=== PATIENT | female | born 1995 | race Hispanic/Latino ===

== ENCOUNTER 2017-08-07 02:50 | Inpatient (IN) | payer OTHER ==
[2017-08-07 03:20] VITALS: BMI 24.3
--- NOTE | 2017-08-07 03:28 | PDOC.LDHP ---
Labor and Delivery H&P HPI: Patient of Dr courtney at [facility], here for irregular contractions. NO LOF, No VB, no Has, no recent trauama. EDC is 09/19/17. Patient is a 22 yo X 1 16 mos ago (born at 38 weeks) Sab2, at 33 weeks 6 days. Review of Systems: complete ROS performed and as per HPI. HX recent intercourse Current gestational age (weeks): 33 (6 days) Dating criteria: last menstrual period Grav: 4 Para: 1 (Last 16 mos ago, term delivery) Current complications: none Abnormal US findings: No Current medications: pre-norman vitamins Previous surgical history: other (HX Breast aumentation 2013) Allergies/Adverse Reactions: Allergies Allergy/AdvReac Type Severity Reaction Status Date / Time No Known Allergies Allergy Verified 08/07/17 03:13 Social history: none - Physical Exam Vital signs reviewed and normal: yes (BP 114/67, 70, 12, afebrile) General: NAD Heart: RRR Lungs: CTAB Abdomen: gravid Extremeties: no edema FHT: category 1 [place] contractions every: Irregular - Vaginal Exam cm dilated: 3 Effacement: 75% Station: -1 - Assessment L&D Assessment: labor - Plan Plan: observation in L&D, GBS antibiotic prophylaxis, informed consent obtained , other (We will keep in L&D for at least 12 hours and obs. Celestone now and in 12 hours. IVF hydrate. Sono for EFW.)
[2017-08-07] MEDS ORDERED: Promethazine HCl 25 MG/ML VIAL IM/IV PRN (03:33)
[2017-08-07] MEDS ORDERED: Ibuprofen 800 MG TAB PO PRN (03:36)
[2017-08-07] MEDS ORDERED: HYDROcodone/Acetaminophen 5/325 mg Tablet PO PRN ×2 (03:36)
[2017-08-07] MEDS ORDERED: Lidocaine 1% (PF) 30 ML VIAL SC PRN (03:36)
[2017-08-07] MEDS ORDERED: LR / Pitocin 40 units/1000 ml 1,000 ML IV PRN (03:36)
[2017-08-07] MEDS ORDERED: Penicillin G Potassium 5 MILL.UNITS in Sodium Chloride 0.9% 100 ML IVPB SCH (03:45)
--- NOTE | 2017-08-07 03:47 | PDOC.EVN ---
Event Note - Event Note Event Note: Follow up: Patient states that her first , she actually presented with some contractions and arrested labor with resulting at term. I reviewed hydration and sedation with her for therapeutic rest but she declined medications for pain. I also discussed terbutaline SQ x1 as a uterine relaxer but she is unsure if she would like the medication. We will give her some additional printed information on it. [place] with uterine irritability at this time, cat 1 strip.
[2017-08-07] MEDS ORDERED: Betamet Acet/Betamet Na Ph 30 MG/5 ML VIAL ONE (03:56)
[2017-08-07] MEDS ORDERED: Terbutaline Sulfate 1 MG/ML VIAL SC SCH (04:00)
--- NOTE | 2017-08-07 04:12 | PDOC.EVN ---
Event Note - Event Note Event Note: @0415: Present for bedside sono: EFW approx 1900 grams, cephalic. Good FHTs.
[2017-08-07] MEDS: Lactated Ringer's 1,000 ML IV SCH ×2 (04:25→14:56)
[2017-08-07 05:09] LABS: Hemoglobin 11.9 g/dL (12.0-16.0); Mean Corpuscular HGB CONC 33.4 g/dL (32.0-36.0); Mean Corpuscular Volume 83.9 fl (81.0-99.0); Platelet Count 315 thou/uL (130-400); RBC Distribution Width 12.4 % (11.5-14.5); Red Blood Cell (RBC) Count 4.24 mill/uL (4.20-5.40); White Blood Cell (WBC) Count 11.2 thou/uL (4.8-10.8)
[2017-08-07 05:48] LABS: Syphilis Antibody Nonreactive (Nonreactive); Syphilis Antibody Index 0.04 S/CO (<1.00 Non-Reactive)
[2017-08-07 05:49] LABS: HBSAg Index 0.54 S/CO (0-0.99); HIV (1/2) Antibody/Antigen Non-Reactive (NonReactive); HIV 1/2 INDEX 0.07 S/CO (<1.00); Hep B Surf Ag Non-Reactive S/CO (NonReactive)
--- NOTE | 2017-08-07 07:17 | PDOC.LDPN ---
Labor & Delivery Progress Note - Objective Dilation: 4 Effacement: 75% Station: -1 FHT: category 1 [place] contractions every: irregular - Assessment (1) labor in third trimester Code(s): O60.03 - LABOR WITHOUT DELIVERY, THIRD TRIMESTER Current Visit: Yes Status: Acute Plan: continue plan of care, other ([employer] has seen her. Patient first desired to think about terbutaline, but did recieve it after talking with neonatology. CX 4-5cm at last check which was at 0630. I evaluated her this AM at bedside just now and plan again reviewed. Anticipate spontaneous progress of labor. Second celestone if not delivered, at 12 hours. PCN in use. )
[2017-08-07] MEDS ORDERED: NIFEdipine 10 MG CAP ONE (08:44)
[2017-08-07] MEDS: Penicillin G 2.5 MILL.units 2.5 MILL.UNITS in Premix Bag 1 BAG IVPB SCH ×2 (08:48→13:07)
[2017-08-07] MEDS ORDERED: Betamet Acet/Betamet Na Ph 30 MG/5 ML VIAL IM SCH (09:00)
[2017-08-07] MEDS ORDERED: NIFEdipine 10 MG CAP PO SCH (09:15)
--- NOTE | 2017-08-07 09:27 | ULT ---
PRELIMINARY REPORT/[facility]/EMERGENT[facility] AFTER-HOURS PROCEDURE US After First Trimester, Transabdominal CLINICAL HISTORY: 22 years old, female; Signs and symptoms; Lmp or gestational age (in weeks): 32-33wks; Other: ? Prete rm labor- eval size and position; TECHNIQUE: Real-time transabdominal obstetrical ultrasound of the maternal pelvis and a second or third trimeste r with image documentation. COMPARISON: No relevant prior studies available. FINDINGS: Fetus: Single live Heart rate: 140 beats per minute Presentation: Vertex Placenta: Unremarkable. No abruption. Amniotic fluid: Index measures 9.4 cm at the lower range of normal Anatomy: Visualized anatomy is normal. BIOMETRICS Gestational age: 32 weeks and 3 days DIANA: 09/29/2017 EFW: 1960 g MATERNAL: Free fluid: No free fluid. IMPRESSION: Single live intrauterine as described Estimated weight of 1960 g Vertex position Amniotic fluid index at the lower range of normal Thank you for allowing us to participate in the care of your patient. Dictated and Authenticated by: Ananth Zambrano MD 08/07/2017 5:38 AM Central Time ([place] & [place]) FINAL REPORT OBSTETRICAL ULTRASOUND: INDICATION: History of labor. COMPARISON: None. FINDINGS: There is a single live intrauterine gestation in vertex presentation. The placenta is anterior in lo cation without evidence of previa. Cardiac activity is noted at 147 b.p.m. HOLLY is measures a 9.4 cm . The estimated weight based on biometrics is 4 pounds 5 ounces +/- 10 ounces (1960 gm + /- 290 gm) (10th percentile). The estimated gestational age based on biometrics is 32 weeks 3 days with estimated due date . Visualized aspects of the anatomy at this advanced gestational age appeared within normal limi ts. IMPRESSION: Agree with the preliminary report provided. There is a single live intrauterine gestation with size and dates as above. The amniotic fluid index is lower limits of normal at 9.4 cm. POS: [facility]
[2017-08-07] MEDS ORDERED: Sodium Chloride 0.9% 1,000 ML IV SCH (11:00)
[2017-08-07] MEDS: NIFEdipine 10 MG CAP PO SCH ×3 (13:08→20:47)
[2017-08-08] MEDS: Lactated Ringer's 1,000 ML IV SCH ×4 (01:02→14:40)
[2017-08-08] MEDS: NIFEdipine 10 MG CAP PO SCH ×5 (03:01→22:19)
[2017-08-08] MEDS ORDERED: Betamet Acet/Betamet Na Ph 30 MG/5 ML VIAL IM SCH (03:45)
--- NOTE | 2017-08-08 08:45 | PDOC.EVN ---
Event Note - Event Note Event Note: 08/09/15 @0841: L&D Bed Check: Patient seen st bedside. Plan reviewed. She is eating breakfast and doing well. Occassional contractions. S. VSS afebrile. No VB, no ROM O. On oral procardia Cat 1 strip (i use now) A/P: Assessment and plan: arrested PTL at 34 weeks, s/p celestone...on oral nifedipine. Procardia ordered to stop at 0400 on 08/09/17 (approximate time), then recommend 24 hours observation of meds.
--- NOTE | 2017-08-08 09:09 | PRG ---
DATE OF SERVICE: 08/08/2017 HISTORY OF PRESENT ILLNESS: Ms. Gt Payne is a 22-year-old female, hospital day 2, admitted f or labor, patient was arrested at 4 cm, 80% effaced and -2 station, on Procardia yesterday mo rning. She has done very well in the last 24 hours and has been resting without complaint. She repo rts today that she begins to feel contractions again, as the medicine is wearing off. She has no oth er complaints. Denies leaking fluid or bleeding. She is tolerating a diet. She denies headaches. OBJECTIVE: VITAL SIGNS: Blood pressure 103/56, heart rate of 86, respiratory rate 16, temperature 98.2. GENERAL: She appears to be in no acute distress. She is alert, oriented, cooperative, and pleasant to interact with. HEAD: Normocephalic, atraumatic. ABDOMEN: Soft, nontender to palpation. EXTREMITIES: Nontender, nonedematous. CERVICAL EXAM: Has been deferred at this time. heart tracing last night demonstrated a fetus with a baseline in the 130s with moderate long-term variability, positive accelerations, no decelerat ions, and no contractions. ASSESSMENT AND PLAN: The patient is a 22-year-old female with an intrauterine at 34 weeks with arrest at 4 cm. She is status post 2 doses of betamethasone. Her 48-hour window will be closed tomorrow at 3 in the morning, at which time the Procardia will be discontinued. Given the patient's stable status, the patient is going to be transferred to the floor for the remainder of her stay unl ess she begins to show signs of labor once again.
[2017-08-08] MEDS ORDERED: Penicillin G Potassium 5 MILL.UNITS VIAL ONE (14:58)
[2017-08-08] MEDS ORDERED: Ondansetron HCl/PF 4 MG/2 ML Vial IVP PRN (14:59)
[2017-08-08] MEDS ORDERED: Promethazine HCl 25 MG/ML VIAL IM PRN (14:59)
[2017-08-08] MEDS ORDERED: Sodium Chloride 0.9% 100 ML ONE (14:59)
[2017-08-08] MEDS ORDERED: LR / Pitocin 40 units/1000 ml 1,000 ML IV PRN (15:00)
[2017-08-08] MEDS ORDERED: Lidocaine 1% (PF) 30 ML VIAL SC PRN (15:00)
[2017-08-08] MEDS ORDERED: Penicillin G Potassium 5 MILL.UNITS in Sodium Chloride 0.9% 100 ML IVPB SCH (15:00)
[2017-08-08] MEDS ORDERED: Ibuprofen 800 MG TAB PO PRN (15:00)
--- NOTE | 2017-08-08 15:03 | PDOC.EVN ---
Event Note - Event Note Event Note: L&D @ 1450: Patient was having contractions on the anderson, I arranged for L&D tranfer (now in L&D). S. Some contractions, no VB, no ROM O. VSS afeb Cat 1 Assessment: PTL at 34 weeks Plan: L&D observation, pitocin if ROM occurs. Patient has declined further procardia doses. Nicu aware. TRES Canseco
--- NOTE | 2017-08-08 17:25 | PDOC.EVN ---
Event Note - Event Note Event Note: @1725: 9/c/0...nearing second stage. No acute issues.
[2017-08-08 17:45] LABS: Actual Bicarbonate (HCO3a) 19.5 mEq/L (22-26)
[2017-08-08 17:46] LABS: Base Excess (BEa) -3.6 mEq/L (0 (+/-) 2.5)
--- NOTE | 2017-08-08 17:54 | PDOC.OPDEL ---
OB Operative/Delivery Note Delivery Dr/Surgeon: Bhavin Assist: none Pre-Delivery Diagnosis: active labor ( at 34 weeks, vigorous) Procedure/Post Delivery Dx: spontaneous vaginal delivery Weeks gestation: 34 Anesthesia: none - Findings A Sex: female - 1 min: 8 - 5 min: 9 - Additional Findings/Plan Placenta delivered: spontaneous (possible vilamentous insertion, delivery at 1742 (14 minutes third stage)) Repaired Obstetrical Laceration: none Estimated blood loss: 300 Compilations/Other Findings: Loose nuchal cord x1, baby delivered through. Course: Patient at 34 weeks s/p steroids this admission for PTL. NOTE: Patient was 9cm, then had SROM clear non-malodorous fluid and proceeded to deliver within 2 minutes. When I was called that she was pushing with delivery in vagina, I was enroute from call room when she precepted without problems. Lisa, the patient';s nurse, was at bedside for uncomplicated assisted delivery. No lacs found. I arrived with baby delivering. Cord was 3 vessels but with slight traction was noted to have possibly vilamentous insertion by feeling no firm connection to placental disk. I awaited spont delivery. When I placed a single retractor in the vagina to assess, thepatient pushed and had spont delivery by Multani mode. This was not manually extracted ( was spontaneous). Pedi present for delivery. Baby did skin to skin after first Neonatology eval. No yet weighed...baby to NICU due to 34 weeks EGA. Apgars 8/9. Gas sent.
[2017-08-08] MEDS ORDERED: Preparation H Ointment 28 GM TUBE PR PRN (18:15)
[2017-08-08] MEDS ORDERED: Bisacodyl 10 MG SUPP PR PRN (18:15)
[2017-08-08] MEDS ORDERED: Milk Of Magnesia 30 ML UDCUP PO PRN (18:15)
[2017-08-08] MEDS ORDERED: diphenhydrAMINE 25 MG CAP PO PRN (18:15)
[2017-08-08] MEDS ORDERED: Measles/Mumps/Rubella 10 MCG/0.5 ML VIAL SC ONE (18:15)
[2017-08-08] MEDS ORDERED: Varicella virus, LIVE 0.5 ML VIAL SC ONE (18:15)
[2017-08-08] MEDS ORDERED: Benzocaine/Menthol 20-0.5% 60 ML CAN TOP PRN (18:15)
[2017-08-08] MEDS ORDERED: LR / Pitocin 40 units/1000 ml 1,000 ML IV SCH (18:15)
[2017-08-08] MEDS ORDERED: Adacel (T-DAP) 0.5 ML VIAL IM ONE (18:15)
[2017-08-08] MEDS ORDERED: Acetaminophen/Codeine 30-300mg Tablet PO PRN ×2 (18:15)
[2017-08-08] MEDS ORDERED: Lanolin Ointment 7 GM TUBE TOP PRN (18:15)
[2017-08-08] MEDS ORDERED: Penicillin G 2.5 MILL.units 2.5 MILL.UNITS in Premix Bag 1 BAG IVPB SCH (19:00)
[2017-08-08] MEDS: Ibuprofen 800 MG TAB PO SCH (22:20)
[2017-08-08] MEDS: Acetaminophen 500 MG TAB PO SCH (23:09)
[2017-08-08] MEDS: Docusate Calcium (SURFAK) 240 MG CAP PO SCH (23:10)
[2017-08-09] MEDS: Ibuprofen 800 MG TAB PO SCH ×3 (02:01→17:31)
[2017-08-09] MEDS: Acetaminophen 500 MG TAB PO SCH ×3 (04:55→17:34)
[2017-08-09 06:18] LABS: Hemoglobin 10.5 g/dL (12.0-16.0); Mean Corpuscular Hemoglobin 28.1 pg (27.0-31.0); Mean Corpuscular Volume 85.1 fl (81.0-99.0); Mean Platelet Volume 7.6 fL (7.4-10.4); Platelet Count 296 thou/uL (130-400); RBC Distribution Width 12.4 % (11.5-14.5); Red Blood Cell (RBC) Count 3.73 mill/uL (4.20-5.40); White Blood Cell (WBC) Count 19.5 thou/uL (4.8-10.8)
--- NOTE | 2017-08-09 06:35 | PDOC.PP ---
Post Progress Note Post Day #: 1 Subjective: Doing well. She states baby breast feed and is doing well. PO intake tolerated: yes Flatus: yes Ambulation: yes Vital Signs (12 hours) Temp Pulse Resp BP Pulse Ox 08/09/17 04:00 97.7 F 56 L 16 08/09/17 02:00 97.7 F 56 L 16 101/57 L 98 08/08/17 22:44 98.7 F 69 16 110/65 98 08/08/17 20:50 98.8 F 76 18 110/64 99 08/08/17 19:57 98.8 F 68 18 101/59 L 99 Weight Weight 137 lb - Physical Examination General: NAD Cardiovascular: no m/r/g Respiratory: clear to auscultation bilaterally Abdominal: + bowel sounds, lochia, no distention, appropriately TTP Extremities: negative homans (B) Neurological: no gross focal deficits Psychiatric: A&Ox3, normal affect Result Diagrams: 08/09/17 06:01 Additional Labs: Post Labs Blood Type A POSITIVE 08/07/17 04:25 Hep Bs Antigen Non-Reactive S/CO (NonReactive) 08/07/17 04:25 (1) labor in third trimester Code(s): O60.03 - LABOR WITHOUT DELIVERY, THIRD TRIMESTER Status: Acute Qualifiers: labor delivery status: with delivery in third trimester Fetus number: single or unspecified fetus Qualified Code(s): O60.14X0 - labor third trimester with delivery third trimester, not applicable or unspecified (2) delivery Status: Acute - Assessment/Plan Doing well day 1. We will continue inhouse observation for now.
[2017-08-09] MEDS ORDERED: Calcium Carbonate 500 MG ChewTAB PO PRN (06:43)
[2017-08-09] MEDS ORDERED: Ferrous Sulfate 325 MG TAB PO SCH (08:00)
[2017-08-09] MEDS: Docusate Calcium (SURFAK) 240 MG CAP PO SCH ×2 (10:02→22:32)
[2017-08-09] MEDS: Prenatal Vitamin 1 TAB PO SCH (10:02)
[2017-08-10] MEDS: Acetaminophen 500 MG TAB PO SCH ×3 (01:33→10:47)
[2017-08-10] MEDS: Ibuprofen 800 MG TAB PO SCH ×2 (02:24→15:48)
--- NOTE | 2017-08-10 07:44 | PDOC.PP ---
Post Progress Note Post Day #: 2 Subjective: Doing well, no complaints this morning. PO intake tolerated: yes Flatus: yes Ambulation: yes Vital Signs (12 hours) Temp Pulse Resp BP Pulse Ox 08/09/17 20:49 98.0 F 86 16 98 08/09/17 19:57 98.0 F 86 16 111/58 L 98 Weight Weight 137 lb - Physical Examination General: NAD Respiratory: non-labored breathing Abdominal: lochia (normal) Neurological: no gross focal deficits Psychiatric: A&Ox3, normal affect Result Diagrams: 08/09/17 06:01 Additional Labs: Post Labs Blood Type A POSITIVE 08/07/17 04:25 Hep Bs Antigen Non-Reactive S/CO (NonReactive) 08/07/17 04:25 (1) delivery Status: Acute - Assessment/Plan Will discharge today. Patient will discuss B&B vs [facility] Room stay as baby will be staying in NICU.
[2017-08-10] MEDS: Prenatal Vitamin 1 TAB PO SCH (10:45)
[2017-08-10] MEDS: Docusate Calcium (SURFAK) 240 MG CAP PO SCH (10:46)
[2017-08-10 10:54] VITALS: BP 113/80; TEMP 98.5
== END 2017-08-10 18:17 | disposition home or self-care (01) | DRG 775 ==
LOC: L&D/OP 02:50 → L&D 05:02 → 3SW 08-08 10:14 → L&D 08-08 14:53 → 3SW 08-08 20:29
PROVIDERS: ADMIT Obstetrics & Gynecology; ATTEND Obstetrics & Gynecology
PROC: 10E0XZZ Delivery of Products of Conception, External Approach (ICD-10-PCS; principal; 2017-08-08)
DX: O60.14X0 Preterm labor third trimester with preterm delivery third trimester, not applicable or unspecified (principal); Z37.0 Single live birth; Z3A.34 34 weeks gestation of pregnancy; O69.81X0 Labor and delivery complicated by cord around neck, without compression, not applicable or unspecified
CPT/HCPCS: 36415; 51701; 59025; 76805; 82805; 85027; 86780; 87340; 87389; 90707; 90715; 90716; 99285; J0702; J2001; J2540; J3105; J7050

== ENCOUNTER 2018-06-28 09:32 | Outpatient (CLI) | payer OTHER ==
--- NOTE | 2018-06-28 12:47 | ULT ---
OB ULTRASOUND: COMPARISON: None. HISTORY: female. Evaluate for size, dates, and anatomy. TECHNIQUE: Multiplanar, paul scale, and color Doppler images were obtained in a transabdominal ultrasound. FINDINGS: There is a single live intrauterine with a heart rate of 134 b.p.m. A survey was per formed which is unremarkable. The head, intracranial structures, heart, stomach, kidneys, umbilical cord, umbilical cord insertion, bladder, spine, face, and extremities were evaluated and were normal. Estimated weight is 229 gm. Average age of the fetus based off today's examination is 18 wee ks 0 days. The following measurements were taken and dates based off these measurements are as follo ws. BPD 3.69 cm, 17 weeks 3 days HC 14.31 cm, 17 weeks 4 days AC 12.58 cm, 18 weeks 2 days FL 2.76 cm, 18 weeks 4 days The placenta is anterior in location without evidence of placenta previa. The amniotic fluid volume is subjectively within normal limits. The cervix is normal in length. IMPRESSION: Single live intrauterine with estimated age of 18 weeks 0 days. POS: [facility]
== END 2018-06-28 09:33 | disposition home or self-care (01) ==
LOC: BICULT 09:32
PROVIDERS: ATTEND Family Medicine
DX: Z34.92 Encounter for supervision of normal pregnancy, unspecified, second trimester (principal); Z3A.18 18 weeks gestation of pregnancy
CPT/HCPCS: 76805

== ENCOUNTER 2018-10-04 14:05 | Day surgery (SDC) | payer OTHER ==
[2018-10-04 14:29] VITALS: BMI 25.0
[2018-10-04 14:40] VITALS: BP 95/69; TEMP 98.2
[2018-10-04] MEDS ORDERED: Betamet Acet/Betamet Na Ph 30 MG/5 ML VIAL IM SCH (14:45)
[2018-10-04] MEDS ORDERED: Betamet Acet/Betamet Na Ph 30 MG/5 ML VIAL ONE (14:52)
== END 2018-10-04 15:00 | disposition home or self-care (01) ==
LOC: L&D/OP 14:05
PROVIDERS: ATTEND Family Medicine
DX: Z29.8 Encounter for other specified prophylactic measures (principal); Z79.899 Other long term (current) drug therapy
CPT/HCPCS: 96372; J0702

== ENCOUNTER 2018-10-05 00:59 | Observation (INO) | payer OTHER ==
[2018-10-05] MEDS ORDERED: hydrALAZINE 20 MG/ML VIAL SLOW IVP PRN (01:38)
[2018-10-05 01:39] VITALS: BMI 25.0
--- NOTE | 2018-10-05 01:41 | PDOC.LDHP ---
Labor and Delivery H&P HPI: Patient of Dr Young Time: 139 CC: CTX at 33 weeks 23 yo with last delivery 1 year ago which was , here with possible CTX. Had celestone yeterday. No LOF, no VB, good FM. Last sex was within 24 hrs Review of Systems: complete ROS completed and as per HPI Current gestational age (weeks): 33 (1 days) Due date: 11/20/18 Dating criteria: last menstrual period Grav: 5 Para: 2 OB History Details: x 2, one term, one Current complications: none Abnormal US findings: No Current medications: pre-norman vitamins Previous surgical history: none Allergies/Adverse Reactions: Allergies Allergy/AdvReac Type Severity Reaction Status Date / Time No Known Allergies Allergy Verified 10/04/18 14:29 Social history: none - Physical Exam Vital signs reviewed and normal: yes (119/76 98.7) General: NAD Heart: RRR Lungs: CTAB Abdomen: gravid Extremeties: no edema FHT: category 1 [place] contractions every: irregular every 5-6 minutes - Assessment threatened PTL at 33 weeks 1 day, s/p celestone X1 in recently. HX PTB x 1. - Plan Plan: observation in L&D, other (FFN cannot be obtained due to recent intercourse within 24 hours. I have requested RN cervical exam. I will see when her first celestone was given to see if we can give second injection. If suspected PTL, needs GBS coverage)
[2018-10-05] MEDS ORDERED: Butorphanol Tartrate 1 MG/ML VIAL SLOW IVP PRN (01:47)
--- NOTE | 2018-10-05 01:47 | PDOC.EVN ---
Event Note - Event Note Event Note: Next celestone kinjal be 2-3pm today. We will give IV hydration and sedation and order cervical length
[2018-10-05] MEDS ORDERED: Lactated Ringer's 1,000 ML IV SCH (02:00)
--- NOTE | 2018-10-05 02:16 | PDOC.EVN ---
Event Note - Event Note Event Note: TVUS cervical length 2.2cm WE will observe overnight. I will notify Dr Young
--- NOTE | 2018-10-05 06:22 | PDOC.EVN ---
Event Note - Event Note Event Note: Time: 619 Patient deels better, but still with some CTX. Dr Young is away. Dr Beata Lopez who is covering has asked we see her. WE will recheck CX. If no change, I will have her follow up today in clinic with Beata Lopez. As celestone due this PM, I will order prior to her leaving this morning.
[2018-10-05] MEDS ORDERED: Betamet Acet/Betamet Na Ph 30 MG/5 ML VIAL IM SCH (07:00)
[2018-10-05 07:38] VITALS: BP 105/54; TEMP 98.6
--- NOTE | 2018-10-05 07:56 | ULT ---
Ultrasound transvaginal History: Cervical length Comparison: Ultrasound OB June 28, 2018 Findings: Real-time grayscale and color evaluation of the cervix was performed. The cervix is closed and measures 2.2 cm in length. Impression: Closed cervix measuring 2.2 cm in length.
== END 2018-10-05 09:10 | disposition home health service (06) ==
LOC: L&D/OP 00:59 → L&D 02:23
PROVIDERS: ADMIT Family Medicine; ATTEND Family Medicine
DX: O47.03 False labor before 37 completed weeks of gestation, third trimester (principal); Z3A.33 33 weeks gestation of pregnancy
CPT/HCPCS: 59025; 96372; 99285; G0378; J0702

== ENCOUNTER 2018-10-27 21:59 | Day surgery (SDC) | payer OTHER ==
[2018-10-27 22:30] VITALS: BMI 25.1
--- NOTE | 2018-10-27 23:39 | PDOC.FPROB ---
FMR OB H&P: HPI - History of Present Illness History of Present Illness: 23 yo @ 36.2wks here with contractions since 1800 today. Denies LOF, VB , vaginal discharge. Endorses movement. FMR OB H&P: Current - Care : 2 Para: 1102 Gestational age: 36.2 Due date: 11/22 FMR OB H&P: History - Past Medical History PMH: none - OB History OB History: 2 prior SVDs delivery at 34 weeks term delivery at 38 weeks - Surgical History Sx History: breast augmentation - Social History Social History: denies smoking, alcohol, drug use - Family History Family History: none FMR OB H&P: Medications - Current Home Medications: Medication Instructions Recorded Confirmed Type Vitamin 1 tab PO DAILY tab 08/10/17 10/05/18 Rx Progesterone, Micronized 100 mg PO DAILY 10/04/18 10/05/18 History [Progesterone] Allergies/Adverse Reactions: Allergies Allergy/AdvReac Type Severity Reaction Status Date / Time No Known Allergies Allergy Verified 10/27/18 22:30 FMR OB H&P: ROS - Review of Systems General: denies: fever/chills, weight/appetite/sleep changes ENT: denies: nasal congestion, rhinorrhea Cardiovascular: denies: chest pain, palpitation Gastrointestinal: denies: abdominal pain, indigestion Genitourinary (Female): denies: incontinence, dysuria Musculoskeletal: denies: pain, stiffness Neurologic: denies: numbness, syncope Integumentary: denies: itching, rash Psychological: denies: depression, anxiety FMR OB H&P: Vital Signs - Maternal Vital signs: BP: 113/72 - Heart Tones Baseline: 140 Variability: minimal Acceleration: absent Category: category 2 [place] contractions every: 2-4 minutes FMR OB H&P: Physical Exam - Physical Exam General: NAD, awake, alert and oriented Heart: RRR, normal S1/S2 General: CTAB, no respiratory distress Abdomen: soft, gravid - Pelvic Exam SVE: 250/-3 FMR OB H&P: Results - Labs Lab results: GBS + FMR OB H&P: A/P - Problem List (1) labor in third trimester Current Visit: No Status: Acute Code(s): O60.03 - LABOR WITHOUT DELIVERY, THIRD TRIMESTER Qualifiers: labor delivery status: with delivery in third trimester Fetus number: single or unspecified fetus Qualified Code(s): O60.14X0 - labor third trimester with delivery third trimester, not applicable or unspecified Discussion: Date/Time: 10/27/187 23 yo @ 36.2wks with contractions and recently admitted for PTL, given steroids at that time. A/P: contractions, concern for PTL -Will monitor via NST and recheck for cervical change in two hours. ->3 weeks since prior dose of steroids, but pt declines any additional rescue dose at this time. -pt over 32 weeks, no indication for mag -pt not ruptured currently -Pt is GBS + -Will monitor closely. Sherice Duque MD, PGY-3 This H&P was discussed with Dr. Bonilla who agrees with the above documentation and plan. Addendum - Attending - Attending Attestation Date/Time: 10/28/18 0120 I personally evaluated the patient and discussed the management with Dr. Weems. I agree with the History, Examination, Assessment and Plan documented above.
== END 2018-10-28 03:39 | disposition home or self-care (01) ==
LOC: L&D/OP 21:59
PROVIDERS: ATTEND Family Medicine
DX: O60.03 Preterm labor without delivery, third trimester (principal); O99.820 Streptococcus B carrier state complicating pregnancy; Z3A.36 36 weeks gestation of pregnancy; Z79.899 Other long term (current) drug therapy
CPT/HCPCS: 99283

== ENCOUNTER 2018-10-28 17:21 | Inpatient (IN) | payer OTHER ==
[2018-10-28] MEDS ORDERED: hydrALAZINE 20 MG/ML VIAL SLOW IVP PRN ×2 (17:26→21:40)
[2018-10-28] MEDS ORDERED: HYDROcodone/Acetaminophen 5/325 mg Tablet PO PRN ×2 (17:26)
[2018-10-28] MEDS ORDERED: Misoprostol 200 MCG TAB PR PRN (17:26)
[2018-10-28] MEDS ORDERED: Lidocaine 1% (PF) 30 ML VIAL SC PRN (17:26)
[2018-10-28] MEDS ORDERED: Butorphanol Tartrate 1 MG/ML VIAL SLOW IVP PRN (17:26)
[2018-10-28] MEDS ORDERED: Ibuprofen 800 MG TAB PO PRN (17:26)
[2018-10-28] MEDS ORDERED: NS / Oxytocin 40 units/1000ml 1,000 ML IV PRN (17:26)
[2018-10-28] MEDS ORDERED: Ondansetron PF 4 MG/2 ML Vial IVP PRN (17:26)
[2018-10-28] MEDS ORDERED: Diphenoxylate HCl/Atropine Tablet PO PRN ×2 (17:26)
[2018-10-28] MEDS ORDERED: Promethazine HCl 25 MG/ML VIAL IM PRN (17:26)
[2018-10-28] MEDS ORDERED: Carboprost 250 MCG/ML AMP IM PRN (17:26)
[2018-10-28] MEDS ORDERED: Zolpidem Tartrate 5 MG TAB PO PRN (17:26)
[2018-10-28] MEDS ORDERED: Acetaminophen 500 MG TAB PO PRN (17:26)
[2018-10-28] MEDS ORDERED: Methylergonovine 0.2 MG/ML VIAL IM PRN (17:26)
[2018-10-28] MEDS ORDERED: Lactated Ringer's 1,000 ML IV SCH (17:30)
[2018-10-28] MEDS ORDERED: Penicillin G Potassium 5 MILL.UNITS in Sodium Chloride 0.9% 100 ML IVPB SCH (17:30)
[2018-10-28 17:42] LABS: Hemoglobin 13.1 g/dL (12.0-16.0); Mean Corpuscular HGB CONC 32.4 g/dL (32.0-36.0); Mean Corpuscular Volume 89.6 fL (78.0-98.0); Mean Platelet Volume 7.9 fL (7.4-10.4); Platelet Count 293 thou/uL (130-400); Red Blood Cell (RBC) Count 4.52 mill/uL (4.20-5.40); White Blood Cell (WBC) Count 12.5 thou/uL (4.8-10.8)
[2018-10-28 18:23] LABS: HBSAg Index 0.46 S/CO (0-0.99); Hep B Surf Ag Non-Reactive S/CO (NonReactive); Syphilis Antibody Nonreactive (Nonreactive); Syphilis Antibody Index 0.04 S/CO (<1.00 Non-Reactive)
[2018-10-28] MEDS ORDERED: Measles/Mumps/Rubella 10 MCG/0.5 ML VIAL SC ONE (18:54)
--- NOTE | 2018-10-28 18:58 | PDOC.LDHP ---
Labor and Delivery H&P Chief complaint: contractions HPI: CTX started last night, worsening all day today. No LOF. Good movement. Current gestational age (weeks): 36 Dating criteria: last menstrual period, first trimester ultrasound Grav: 3 Para: 2 Current complications: other ( labor, got steroids x2 doses, was on progesterone for prevention.) Abnormal US findings: No Past Medical History: labor with last . Current medications: pre-norman vitamins, other (Progesterone) Previous surgical history: none Allergies/Adverse Reactions: Allergies Allergy/AdvReac Type Severity Reaction Status Date / Time No Known Allergies Allergy Verified 10/27/18 22:30 - Physical Exam Vital signs reviewed and normal: yes General: NAD, breathing through contractions Heart: RRR Lungs: CTAB Abdomen: gravid Extremeties: no edema FHT: category 1 - Vaginal Exam cm dilated: 6 Effacement: 90% Station: -2 - OB Labs Blood type: A RH: positive Antibody Screen: negative HIV: negative RPR: negative HEPSAg: negative 1 hour GCT: negative GBS: positive Urine drug screen: not done Rubella: non-immune - Assessment L&D Assessment: term patient in labor - Plan Plan: admit to L&D (Low intervention requested. Active labor. Progressed quickly. GBS prophylaxis with PCN. Only 1 dose prior to delivery secondary to rapid labor.)
--- NOTE | 2018-10-28 19:01 | PDOC.OPDEL ---
OB Operative/Delivery Note Delivery Dr/Surgeon: Hector Assist: None Pre-Delivery Diagnosis: active labor Procedure/Post Delivery Dx: spontaneous vaginal delivery Weeks gestation: 36 Anesthesia: none - Findings A Sex: female - 1 min: 9 - 5 min: 9 - Additional Findings/Plan Placenta delivered: spontaneous Repaired Obstetrical Laceration: none Estimated blood loss: 250 ml Compilations/Other Findings: Routine delivery of 36 week baby. No intrapartum complications. Delivered OA, shoulders and body easily followed, nuchal cord x1, loose. Baby placed on mothers abdomen, spontaneous cry, routine care. Post delivery plan: routine recovery
[2018-10-28] MEDS ORDERED: Penicillin G 2.5 MILL.units 2.5 MILL.UNITS in Premix Bag 1 BAG IVPB SCH (21:00)
[2018-10-28] MEDS ORDERED: Milk Of Magnesia 30 ML UDCUP PO PRN (21:40)
[2018-10-28] MEDS ORDERED: NS / Oxytocin 40 units/1000ml 1,000 ML IV SCH (21:40)
[2018-10-28] MEDS ORDERED: Bisacodyl 10 MG SUPP PR PRN (21:40)
[2018-10-28] MEDS ORDERED: Benzocaine-Menthol 82.5 ML CAN TOP PRN (21:40)
[2018-10-28] MEDS ORDERED: Docusate Calcium (SURFAK) 240 MG CAP PO SCH (22:00)
[2018-10-29] MEDS: HYDROcodone/Acetaminophen 5/325 mg Tablet PO PRN ×6 (00:54→21:32)
[2018-10-29] MEDS: Ibuprofen 800 MG TAB PO SCH ×3 (02:53→20:53)
[2018-10-29] MEDS ORDERED: Adacel (T-DAP) 0.5 ML SYRINGE IM ONE (09:00)
[2018-10-29] MEDS: Docusate Calcium (SURFAK) 240 MG CAP PO SCH ×2 (09:37→20:53)
[2018-10-29] MEDS: Ferrous Sulfate 325 MG TAB PO SCH ×2 (09:39→17:27)
[2018-10-30] MEDS: HYDROcodone/Acetaminophen 5/325 mg Tablet PO PRN ×3 (01:24→09:51)
[2018-10-30] MEDS: Ibuprofen 800 MG TAB PO SCH ×2 (05:00→13:50)
--- NOTE | 2018-10-30 07:58 | PDOC.PP ---
Post Progress Note Post Day #: 1 Subjective: Doing well. Brestfeeding without issues. Pain minimal. Some cramping with . PO intake tolerated: yes Flatus: yes Ambulation: yes Vital Signs (12 hours) Temp Pulse Resp BP 10/29/18 20:53 98.1 F 71 18 104/63 Weight Weight 5.044 oz - Physical Examination General: NAD Cardiovascular: no m/r/g, RRR Respiratory: clear to auscultation bilaterally, non-labored breathing Abdominal: + bowel sounds, lochia, no distention, appropriately TTP Result Diagrams: 10/28/18 17:35 Additional Labs: Post Labs Blood Type A POSITIVE 10/28/18 17:35 Hep Bs Antigen Non-Reactive S/CO (NonReactive) 10/28/18 17:35 (1) delivery Status: Acute (2) labor in third trimester Code(s): O60.03 - LABOR WITHOUT DELIVERY, THIRD TRIMESTER Status: Acute Qualifiers: - Assessment/Plan PP Day #1 Doing well Routine care Continue to work on BF
--- NOTE | 2018-10-30 08:00 | PDOC.PP ---
Post Progress Note Post Day #: 2 Subjective: Doing well. Upset that baby failed her carseat test last night. Otherwise OK. PO intake tolerated: yes Flatus: yes Ambulation: yes Vital Signs (12 hours) Temp Pulse Resp BP 10/29/18 20:53 98.1 F 71 18 104/63 Weight Weight 5.044 oz - Physical Examination General: NAD Cardiovascular: no m/r/g, RRR Respiratory: clear to auscultation bilaterally, non-labored breathing Abdominal: + bowel sounds, lochia, no distention, appropriately TTP Result Diagrams: 10/28/18 17:35 Additional Labs: Post Labs Blood Type A POSITIVE 10/28/18 17:35 Hep Bs Antigen Non-Reactive S/CO (NonReactive) 10/28/18 17:35 (1) delivery Status: Acute - Assessment/Plan Doing well Routine care D/C today
[2018-10-30 08:14] VITALS: BP 110/63; TEMP 98.2
[2018-10-30] MEDS: Ferrous Sulfate 325 MG TAB PO SCH (08:37)
[2018-10-30] MEDS: Docusate Calcium (SURFAK) 240 MG CAP PO SCH (08:40)
== END 2018-10-30 15:20 | disposition home or self-care (01) | DRG 807 ==
LOC: L&D/OP 17:21 → L&D-LIB 19:22 → 3SW 21:50
PROVIDERS: ADMIT Family Medicine; ATTEND Family Medicine
PROC: 10E0XZZ Delivery of Products of Conception, External Approach (ICD-10-PCS; principal; 2018-10-28)
DX: O60.13X0 Preterm labor second trimester with preterm delivery third trimester, not applicable or unspecified (principal); Z37.0 Single live birth; Z3A.36 36 weeks gestation of pregnancy; O69.81X0 Labor and delivery complicated by cord around neck, without compression, not applicable or unspecified
CPT/HCPCS: 36415; 85027; 86780; 86850; 86900; 86901; 87340; J2001; J2540; J3490

== ENCOUNTER 2024-01-06 23:49 | Emergency (ER) | payer SELFPAY ==
[2024-01-07] MEDS ORDERED: predniSONE 20 MG TAB ONE (01:01)
[2024-01-07] MEDS ORDERED: traMADol HCl 50 MG TAB ONE (01:02)
[2024-01-07] MEDS ORDERED: hydrOXYzine 25 MG TAB ONE (01:06)
== END 2024-01-07 02:01 | disposition home or self-care (01) ==
LOC: ERS 23:49
DX: S90.861A Insect bite (nonvenomous), right foot, initial encounter (principal); W57.XXXA Bitten or stung by nonvenomous insect and other nonvenomous arthropods, initial encounter
CPT/HCPCS: 99282; J7512